=== PATIENT | female | born 1990 | race Two or more races ===

== ENCOUNTER 2016-10-14 01:02 | Emergency (ER) | payer SELFPAY ==
[~2016-10-14] VITALS: Ht 152.4 cm; Wt 54.4 kg
[2016-10-14 01:40] VITALS: BP 139/78
[2016-10-14 01:43] LABS: BILIRUBIN,URINE NEGATIVE (NEG); GLUCOSE,URINE NEGATIVE (NEG); NITRITE,URINE NEGATIVE (NEG); PROTEIN,URINE NEGATIVE (NEG-TRACE); UROBILINOGEN,URINE 0.2 mg/dL (0.2 mg/dL)
[2016-10-14 01:56] LABS: BACTERIA,URINE FEW /HPF (0-FEW); RBC,URINE TNTC /HPF (0-2); SQUAMOUS EPITHELIAL CELL,UR MOD /LPF
[2016-10-14] MEDS ORDERED: ONDANSETRON PF 4 MG/2 ML VIAL. ONE (02:11)
[2016-10-14] MEDS ORDERED: HYDROmorphone 2 MG/ML VIAL ONE (02:11)
[2016-10-14 02:14] LABS: BASO % 1 % (0-3); EOS % 1 % (0-3); HEMATOCRIT 35.4 % (36.0-47.0); HEMOGLOBIN 11.6 g/dL (12.0-15.5); LYMPH # 1.2 x10^3/uL (1.0-4.8); LYMPH % 14 % (24-48); MEAN CORPUSCULAR HEMOGLOBIN 27 pg (25-35); MEAN CORPUSCULAR HGB CONC 33 g/dL (31-37); MEAN CORPUSCULAR VOLUME 82 fL (79-100); MONO % 3 % (0-9); NEUT % 82 % (31-73); PLATELET COUNT 254 x10^3/uL (140-400); RED BLOOD COUNT 4.32 x10^6/uL (3.50-5.40); RED CELL DISTRIBUTION WIDTH 14.6 % (11.5-14.5)
[2016-10-14 02:21] LABS: CREATININE 0.7 mg/dL (0.6-1.0); GFR 100.4; POTASSIUM 3.4 mmol/L (3.5-5.1)
[2016-10-14 02:27] LABS: ALBUMIN/GLOBULIN RATIO 1.2 (1.0-1.7); TOTAL BILIRUBIN 0.3 mg/dL (0.2-1.0); TOTAL PROTEIN 7.3 g/dL (6.4-8.2)
[2016-10-14] MEDS ORDERED: HYDROmorphone 2 MG/ML VIAL IV ONE ×2 (02:30→03:15)
[2016-10-14] MEDS ORDERED: ONDANSETRON PF 4 MG/2 ML VIAL. IV ONE (02:30)
[2016-10-14] MEDS ORDERED: IV NORMAL SALINE 1000ML BAG 1,000 ML IV ONE (02:30)
--- NOTE | 2016-10-14 02:46 | RAD ---
INDICATION: LEFT FLANK PAIN X TONIGHT COMPARISON: None. TECHNIQUE: Axial CT images were obtained through the abdomen and pelvis without intravenous contrast. Limited assessment of solid organ structures and vasculature secondary to lack of intravenous contrast. One or more of the following individualized dose reduction techniques were utilized for this examination: 1. Automated exposure control; 2. Adjustment of the mA and/or kV according to patient size; 3. Use of iterative reconstruction technique. FINDINGS: Abdomen: Chest Base: Partially imaged without gross abnormality. Vessels: No abdominal aortic aneurysm. Liver/Biliary: No intrahepatic biliary duct dilation. Pancreas: Poorly evaluated on noncontrast exam. Spleen: Normal. Kidneys/Adrenal: Multiple left-sided nonobstructive renal stones. Right-sided hydronephrosis and hydroureter. 8 mm calcification right hemipelvis. Suspected cystic lesion left adnexa 41 mm. GI: Suspected appendix is partially seen but does not appear grossly inflamed. Moderate stool within the colon. No dilated loops of bowel suggest obstruction. Pelvis: Bladder: No definite adjacent inflammation. IMPRESSION: 1. Suspected cystic lesion left adnexa. Pelvic ultrasound could better evaluate. 2. Right-sided hydronephrosis. There is also a calcification seen in the right hemipelvis. Cannot follow the ureter through this region but it is possible that this is secondary to a right distal ureter stone. Electronically signed by: Ace Pennington MD (10/14/2016 2:42 AM)
[2016-10-14] MEDS ORDERED: KETOROLAC 15 MG/ML VIAL. IV ONE (03:15)
[2016-10-14] MEDS ORDERED: KETOROLAC TROMETHAMINE 30 MG/ML INJ. IV ONE (03:15)
[2016-10-14] MEDS ORDERED: IBUP-1007 PO (03:34)
[2016-10-14] MEDS ORDERED: ONDA4TAB10 SL (03:34)
[2016-10-14] MEDS ORDERED: HYDR-971 PO (03:34)
--- NOTE | 2016-10-14 03:34 | PHYS DOC ---
Past Medical History Past Medical History: No Pertinent History Past Surgical History: , Other Additional Past Surgical Histo: left hand Alcohol Use: None Drug Use: None Adult General Chief Complaint Chief Complaint: FLANK PAIN HPI HPI Patient is a 26 year old female who presents here today complaining of right flank pain. Patient reports nausea no vomiting or diarrhea. Patient reports the pain started approximately 11 PM. Patient reports the pain is intermittent in nature. Patient denies any dysuria frequency or urgency. Patient has any hematuria. Patient reports that the pain radiates from her right flank into her right lower quadrant. Patient denies any fevers shakes chills. Patient has any sore throat or ear pain. Patient has any history of kidney stones in the past. Patient has any history of hypertension diabetes liver longer kidney problems. Patient has had a seat in the past. Patient's physical exam was significant for tenderness to right flank and right lower quadrant. Patient has no rebound or guarding. No psoas or obturator signs. Patient does not present with any signs or symptoms of be consistent with a surgical abdomen. There is no tenderness at McBurney's point. There is no Quinones sign. Patient's ER workup was significant for normal labs. Patient did have blood in her urine. Patient's CT scan of her abdomen and pelvis revealed right-sided hydronephrosis with no distinct stone seen however patient clinically presents with what appears to be a kidney stone. Assessment and plan 26-year-old female who presents here today with signs and symptoms very consistent with renal colic who has right [place] on CT scan and hematuria. Patient was given Dilaudid 1.5 mg total as well as Toradol and Zofran IV fluids. Patient be discharged home with pain medicines and antiemetics and is instructed to follow-up with her primary care physician. Review of Systems Review of Systems Constitutional: Denies fever or chills [] Eyes: Denies change in visual acuity, redness, or eye pain [] All other review systems are negative except as documented in the history of present illness portion. Current Medications Current Medications Current Medications Medications (Trade) Dose Ordered Sig/[facility] Start Time Stop Time Status Last Admin Dose Admin Hydromorphone HCl (Dilaudid) 0.5 mg 1X ONCE 10/14/16 03:15 10/14/16 03:16 DC 10/14/16 03:19 0.5 MG Ketorolac Tromethamine (Toradol) 30 mg 1X ONCE 10/14/16 03:15 10/14/16 03:16 DC 10/14/16 03:19 30 MG Ondansetron HCl (Zofran) 4 mg 1X ONCE 10/14/16 02:30 10/14/16 02:31 DC 10/14/16 02:21 4 MG Sodium Chloride 1,000 ml @ 1,000 mls/hr 1X ONCE 10/14/16 02:30 10/14/16 03:29 10/14/16 02:21 1,000 MLS/HR Allergies Allergies Allergies Coded Allergies Type Severity Reaction Last Updated Verified No Known Drug Allergies 10/14/16 No Physical Exam Physical Exam Constitutional: Well developed, well nourished, no acute distress, non-toxic appearance. [] HENT: Normocephalic, atraumatic, bilateral external ears normal, oropharynx moist, no oral exudates, nose normal. [] Eyes: PERRLA, EOMI, conjunctiva normal, no discharge. [] Neck: Normal range of motion, no tenderness, supple, no stridor. [] Cardiovascular:Heart rate regular rhythm, no murmur [] Lungs & Thorax: Bilateral breath sounds clear to auscultation [] Abdomen: Bowel sounds normal, soft, tenderness, no masses, no pulsatile masses. [] Skin: Warm, dry, no erythema, no rash. [] Back: No tenderness, no CVA tenderness. [] Extremities: No tenderness, no cyanosis, no clubbing, ROM intact, no edema. [] Neurologic: Alert and oriented X 3, normal motor function, normal sensory function, no focal deficits noted. [] Psychologic: Affect normal, judgement normal, mood normal. [] Current Patient Data Vital Signs Vital Signs Date Time Temp Pulse Resp B/P (MAP) Pulse Ox O2 Delivery O2 Flow Rate FiO2 10/14/16 01:40 98.5 60 18 139/78 (98) 100 Room Air 98.5 Lab Values Laboratory Tests Test 10/14/16 01:05 10/14/16 02:00 Urine Collection Type Unknown Urine Color Yellow Urine Clarity Clear Urine pH 6.0 Urine Specific [place] 1.025 Urine Protein Negative mg/dL (NEG-TRACE) Urine Glucose (UA) Negative mg/dL (NEG) Urine Ketones (Stick) Trace mg/dL (NEG) Urine Blood Large (NEG) Urine Nitrite Negative (NEG) Urine Bilirubin Negative (NEG) Urine Urobilinogen Dipstick 0.2 mg/dL (0.2 mg/dL) Urine Leukocyte Esterase Small (NEG) Urine RBC Tntc /HPF (0-2) Urine WBC 5-10 /HPF (0-4) Urine Squamous Epithelial Cells Mod /LPF Urine Bacteria Few /HPF (0-FEW) Urine Mucus Marked /LPF White Blood Count 9.0 x10^3/uL (4.0-11.0) Red Blood Count 4.32 x10^6/uL (3.50-5.40) Hemoglobin 11.6 g/dL (12.0-15.5) L Hematocrit 35.4 % (36.0-47.0) L Mean Corpuscular Volume 82 fL (79-100) Mean Corpuscular Hemoglobin 27 pg (25-35) Mean Corpuscular Hemoglobin Concent 33 g/dL (31-37) Red Cell Distribution Width 14.6 % (11.5-14.5) H Platelet Count 254 x10^3/uL (140-400) Neutrophils (%) (Auto) 82 % (31-73) H Lymphocytes (%) (Auto) 14 % (24-48) L Monocytes (%) (Auto) 3 % (0-9) Eosinophils (%) (Auto) 1 % (0-3) Basophils (%) (Auto) 1 % (0-3) Neutrophils # (Auto) 7.4 x10^3uL (1.8-7.7) Lymphocytes # (Auto) 1.2 x10^3/uL (1.0-4.8) Monocytes # (Auto) 0.3 x10^3/uL (0.0-1.1) Eosinophils # (Auto) 0.0 x10^3/uL (0.0-0.7) Basophils # (Auto) 0.0 x10^3/uL (0.0-0.2) Sodium Level 141 mmol/L (136-145) Potassium Level 3.4 mmol/L (3.5-5.1) L Chloride Level 104 mmol/L (98-107) Carbon Dioxide Level 26 mmol/L (21-32) Anion Gap 11 (6-14) Blood Urea Nitrogen 13 mg/dL (7-20) Creatinine 0.7 mg/dL (0.6-1.0) Estimated GFR (Cockcroft-Gault) 100.4 BUN/Creatinine Ratio 19 (6-20) Glucose Level 122 mg/dL (70-99) H Calcium Level 9.0 mg/dL (8.5-10.1) Total Bilirubin 0.3 mg/dL (0.2-1.0) Aspartate Amino Transferase (AST) 20 U/L (15-37) Alanine Aminotransferase (ALT) 16 U/L (14-59) Alkaline Phosphatase 120 U/L (46-116) H Total Protein 7.3 g/dL (6.4-8.2) Albumin 4.0 g/dL (3.4-5.0) Albumin/Globulin Ratio 1.2 (1.0-1.7) Laboratory Tests 10/14/16 02:00 Laboratory Tests 10/14/16 02:00 EKG EKG [] Radiology/Procedures Radiology/Procedures [] Course & Med Decision Making Course & Med Decision Making Pertinent Labs and Imaging studies reviewed. (See chart for details) [] Dragon Disclaimer Dragon Disclaimer This electronic medical record was generated, in whole or in part, using a voice recognition dictation system. Departure Departure Impression: Primary Impression: Renal colic on right side Disposition: 01 HOME, SELF-CARE Condition: IMPROVED Referrals: NO PCP (PCP) Patient Instructions: Kidney Stones Scripts Ondansetron (ZOFRAN ODT) 4 Mg Tab.rapdis 1 TAB SL Q6HRS Y for NAUSEA, #12 TAB Prov: GISSELLE CANALES MD 10/14/16 Hydrocodone/Apap 5-325 (NORCO 5-325 TABLET) 1 Each Tablet 1 TAB PO QID Y for PAIN, #10 TAB Prov: GISSELLE CANALES MD 10/14/16 Ibuprofen (IBUPROFEN) 600 Mg Tablet 600 MG PO PRN Q6HRS Y for PAIN, #20 TAB Prov: GISSELLE CANALES MD 10/14/16 GISSELLE CANALES MD Oct 14, 2016 03:34
== END 2016-10-14 03:59 | disposition home or self-care (01) ==
LOC: ER 01:02
DX: N23 Unspecified renal colic (principal); Z98.890 Other specified postprocedural states
CPT/HCPCS: 36415; 74176; 80053; 81001; 81025; 85027; 87086; 96361; 96374; 96375; 99285; J1170; J1885; J2405; J7030; 87186

== ENCOUNTER 2016-10-16 21:41 | Inpatient (IN) | payer SELFPAY ==
[~2016-10-16] VITALS: Ht 162.6 cm; Wt 54.4 kg
[~2016-10-16 21:41] MED LIST: HYDR-971 PO; IBUP-1007 PO; ONDA4TAB10 SL
[2016-10-16] MEDS ORDERED: MORPHINE SULFATE 4 MG/ML DISP.SYRIN. IV/SQ PRN (22:15)
[2016-10-16] MEDS ORDERED: IV NORMAL SALINE 1000ML BAG 1,000 ML IV SCH (22:15)
[2016-10-16] MEDS ORDERED: ONDANSETRON PF 4 MG/2 ML VIAL. IV ONE (22:15)
[2016-10-16] MEDS ORDERED: KETOROLAC TROMETHAMINE 30 MG/ML INJ. IV ONE (22:15)
[2016-10-16 22:29] LABS: BASO % 0 % (0-3); EOS % 0 % (0-3); HEMATOCRIT 33.9 % (36.0-47.0); HEMOGLOBIN 11.1 g/dL (12.0-15.5); LYMPH # 0.9 x10^3/uL (1.0-4.8); LYMPH % 8 % (24-48); MEAN CORPUSCULAR HEMOGLOBIN 27 pg (25-35); MEAN CORPUSCULAR HGB CONC 33 g/dL (31-37); MEAN CORPUSCULAR VOLUME 82 fL (79-100); MONO % 8 % (0-9); NEUT % 84 % (31-73); PLATELET COUNT 190 x10^3/uL (140-400); RED BLOOD COUNT 4.14 x10^6/uL (3.50-5.40); RED CELL DISTRIBUTION WIDTH 14.4 % (11.5-14.5); WHITE BLOOD COUNT 10.4 x10^3/uL (4.0-11.0)
[2016-10-16 22:30] LABS: BILIRUBIN,URINE NEGATIVE (NEG); GLUCOSE,URINE NEGATIVE (NEG); NITRITE,URINE NEGATIVE (NEG); PH,URINE 7.5; PROTEIN,URINE NEGATIVE (NEG-TRACE); UROBILINOGEN,URINE 0.2 mg/dL (0.2 mg/dL)
[2016-10-16 22:39] LABS: BACTERIA,URINE MODERATE /HPF (0-FEW); RBC,URINE 20-40 /HPF (0-2); SQUAMOUS EPITHELIAL CELL,UR MANY /LPF; WBC,URINE TNTC /HPF (0-4)
[2016-10-16 22:40] LABS: CALCIUM 8.7 mg/dL (8.5-10.1); CREATININE 0.9 mg/dL (0.6-1.0); GFR 75.1; POTASSIUM 3.9 mmol/L (3.5-5.1)
--- NOTE | 2016-10-16 23:10 | RAD ---
INDICATION: Pain and nausea COMPARISON: October 14, 2016 TECHNIQUE: Grayscale and color ultrasound images obtained of the bilateral kidneys and bladder. FINDINGS: Right Kidney: 10.8 mm. Moderate hydronephrosis with hydroureter. Left Kidney: 10.7 mm. No hydronephrosis. Bladder: 83 cc prevoid. Suspected stone at right ureterovesicular junction measuring up to about 12 mm. IMPRESSION: Right-sided hydronephrosis and hydroureter with a right ureterovesicular junction stone again suspected. Electronically signed by: Ace Pennington MD (10/16/2016 11:07 PM)
--- NOTE | 2016-10-16 23:50 | PHYS DOC ---
Past Medical History Past Medical History: No Pertinent History Past Surgical History: , Other Additional Past Surgical Histo: left hand Alcohol Use: None Drug Use: None Adult General Chief Complaint Chief Complaint: FLANK PAIN HPI HPI Patient is a 26 year old female with who presents with continued pain and right flank radiating to right lower quadrant associated with recent diagnosis of kidney stone at this facility. Pain is constant, slightly improves with home medications, but is not completely relieved. Pain has become more severe this evening. She had a temperature of 100 at home. She continues to have nausea without emesis. She has dysuria without hematuria. She denies diarrhea or constipation. She is currently on menstrual cycle. Review of Systems Review of Systems Constitutional: Denies fever or chills [] Eyes: Denies change in visual acuity, redness, or eye pain [] HENT: Denies nasal congestion or sore throat [] Respiratory: Denies cough or shortness of breath [] Cardiovascular: No additional information not addressed in HPI [] GI: Denies abdominal pain, vomiting, bloody stools or diarrhea [] : Denies hematuria [] Musculoskeletal: Denies joint pain [] Integument: Denies rash or skin lesions [] Neurologic: Denies headache, focal weakness or sensory changes [] Endocrine: Denies polyuria or polydipsia [] Current Medications Current Medications Current Medications Medications (Trade) Dose Ordered Sig/[facility] Start Time Stop Time Status Last Admin Dose Admin Ketorolac Tromethamine (Toradol) 10 mg 1X ONCE 10/16/16 22:15 10/16/16 22:16 DC 10/16/16 22:27 10 MG Morphine Sulfate 4 mg PRN Q15MIN PRN 10/16/16 22:15 10/17/16 22:14 10/16/16 22:29 4 MG Ondansetron HCl (Zofran) 4 mg 1X ONCE 10/16/16 22:15 10/16/16 22:16 DC 10/16/16 22:27 4 MG Sodium Chloride 1,000 ml @ 1,000 mls/hr Q1H 10/16/16 22:15 10/16/16 23:14 DC 10/16/16 22:24 1,000 MLS/HR Allergies Allergies Allergies Coded Allergies Type Severity Reaction Last Updated Verified No Known Drug Allergies 10/14/16 No Physical Exam Physical Exam Constitutional: Well developed, well nourished, no acute distress, non-toxic appearance. [] HENT: Normocephalic, atraumatic, bilateral external ears normal, oropharynx moist, nose normal. [] Eyes: PERRLA, EOMI. [] Neck: Normal range of motion, supple. [] Cardiovascular:Heart rate regular rhythm [] Lungs & Thorax: Bilateral breath sounds clear to auscultation [] Abdomen: Bowel sounds normal, soft, no tenderness. [] Skin: Warm, dry, no erythema, no rash. [] Back: No tenderness, no left CVA tenderness. Has right CVA tenderness. [] Extremities: No tenderness, ROM intact, no edema. [] Neurologic: Alert and oriented X 3, normal motor function, normal sensory function, no focal deficits noted. [] Psychologic: Affect normal, judgement normal, mood normal. [] Current Patient Data Vital Signs Vital Signs Date Time Temp Pulse Resp B/P (MAP) Pulse Ox O2 Delivery O2 Flow Rate FiO2 10/16/16 22:29 16 Room Air 10/16/16 22:11 80 116/55 (75) 98 10/16/16 21:56 98.2 98.2 Lab Values Laboratory Tests Test 10/16/16 21:02 10/16/16 22:10 POC Urine HCG, Qualitative Hcg negative (Negative) White Blood Count 10.4 x10^3/uL (4.0-11.0) Red Blood Count 4.14 x10^6/uL (3.50-5.40) Hemoglobin 11.1 g/dL (12.0-15.5) L Hematocrit 33.9 % (36.0-47.0) L Mean Corpuscular Volume 82 fL (79-100) Mean Corpuscular Hemoglobin 27 pg (25-35) Mean Corpuscular Hemoglobin Concent 33 g/dL (31-37) Red Cell Distribution Width 14.4 % (11.5-14.5) Platelet Count 190 x10^3/uL (140-400) Neutrophils (%) (Auto) 84 % (31-73) H Lymphocytes (%) (Auto) 8 % (24-48) L Monocytes (%) (Auto) 8 % (0-9) Eosinophils (%) (Auto) 0 % (0-3) Basophils (%) (Auto) 0 % (0-3) Neutrophils # (Auto) 8.7 x10^3uL (1.8-7.7) H Lymphocytes # (Auto) 0.9 x10^3/uL (1.0-4.8) L Monocytes # (Auto) 0.8 x10^3/uL (0.0-1.1) Eosinophils # (Auto) 0.0 x10^3/uL (0.0-0.7) Basophils # (Auto) 0.0 x10^3/uL (0.0-0.2) Urine Collection Type Unknown Urine Color Yellow Urine Clarity Cloudy Urine pH 7.5 Urine Specific [place] <=1.005 Urine Protein Negative mg/dL (NEG-TRACE) Urine Glucose (UA) Negative mg/dL (NEG) Urine Ketones (Stick) Negative mg/dL (NEG) Urine Blood Large (NEG) Urine Nitrite Negative (NEG) Urine Bilirubin Negative (NEG) Urine Urobilinogen Dipstick 0.2 mg/dL (0.2 mg/dL) Urine Leukocyte Esterase Large (NEG) Urine RBC 20-40 /HPF (0-2) Urine WBC Tntc /HPF (0-4) Urine Squamous Epithelial Cells Many /LPF Urine Amorphous Sediment Present /HPF Urine Bacteria Moderate /HPF (0-FEW) Urine Mucus Slight /LPF Sodium Level 136 mmol/L (136-145) Potassium Level 3.9 mmol/L (3.5-5.1) Chloride Level 101 mmol/L (98-107) Carbon Dioxide Level 29 mmol/L (21-32) Anion Gap 6 (6-14) Blood Urea Nitrogen 7 mg/dL (7-20) Creatinine 0.9 mg/dL (0.6-1.0) Estimated GFR (Cockcroft-Gault) 75.1 Glucose Level 115 mg/dL (70-99) H Calcium Level 8.7 mg/dL (8.5-10.1) Laboratory Tests 10/16/16 22:10 Laboratory Tests 10/16/16 22:10 Radiology/Procedures Radiology/Procedures Ultrasound bilateral renal IMPRESSION: Right-sided hydronephrosis and hydroureter with a right ureterovesicular junction stone again suspected. Electronically signed by: Ace Pennington MD (10/16/2016 11:07 PM) Course & Med Decision Making Course & Med Decision Making Pertinent Labs and Imaging studies reviewed. (See chart for details) Laboratory evaluation is largely unremarkable, other than urinalysis. Her urine shows evidence of infection; however unclear if this is a contaminated specimen while she is on her menstrual cycle. Imaging as above. She continues to be symptomatic. Discussed case with Dr. Ruffin, urology, who recommends inpatient management with likely procedure tomorrow and Rocephin for possible infection. Discussed case with Dr. Alcantara, who will admit. Dragon Disclaimer Dragon Disclaimer This electronic medical record was generated, in whole or in part, using a voice recognition dictation system. Departure Departure Impression: Primary Impression: Ureteral colic Additional Impression: Acute cystitis with hematuria Disposition: ADMITTED INPATIENT Condition: STABLE Referrals: NO PCP (PCP) Problem Qualifiers Yehuda REVELES MD Oct 16, 2016 23:50
[2016-10-17] VITALS (13 sets, daily range): BP systolic 98–115; BP diastolic 58–75
[2016-10-17] MEDS ORDERED: IV NORMAL SALINE 1000ML BAG 1,000 ML IV SCH
[2016-10-17] MEDS ORDERED: MORPHINE SULFATE 4 MG/ML DISP.SYRIN. IV PRN
[2016-10-17] MEDS ORDERED: ONDANSETRON PF 4 MG/2 ML VIAL. IV PRN
[2016-10-17] MEDS ORDERED: ACETAMINOPHEN 325 MG TABLET. PO PRN
--- NOTE | 2016-10-17 03:59 | ACF ---
Admission Forms Criteria RENAL COLIC AND KIDNEY STONES Clinical Indications for Admission to Inpatient Care ( Place 'X' for any and all applicable criteria): Admission is indicated for ANY ONE of the following (1)(2)(3)(4): [X]I. Inpatient admission required rather than observation care (Also use Renal Colic and Kidney Stones: Observation Care Criteria as appropriate) because of ANY ONE of the following: [ ]a) Severe pain requiring acute inpatient management [ ]b) Urinary tract infection identified [ ]c) Vomiting that is severe or persistent [ ]d) IV fluid required rather than oral rehydration to replace significant ongoing (eg, for greater than 24 hours) losses (greater than 200 mL/hr or 3 L/m2 per day) [ ]e) Percutaneous or open drainage (eg, abscess, biliary tract) procedures [X]f) Other condition, treatment or monitoring requiring inpatient admission [ ]II. Impending acute renal failure [ ]III. Bilateral obstruction [ ]IV. Single kidney with obstruction [ ]V. Transplanted kidney with obstruction [ ]. Possible open surgical procedure needed (eg, pyonephrosis, stone removal not amendable to other means) [ ]VII. Hemodynamic instability Extended stay beyond goal length of stay may be needed for(2)(3)(31): [ ]a) Failed initial stone removal (32) [ ]b) Pyonephrosis [ ]c) Obstructive uropathy with urinary tract infection [ ]d) Procedure complications [ ]e) Comorbidities (22) The original [facility] content created by [employer] has been revised. The portions of the content which have been revised are identified through the use of italic text or in bold, and [facility] has neither reviewed nor approved the modified material. All other unmodified content is copyright [facility]. Please see references footnoted in the original [facility] edition 2016 Admission Criteria Met?: Yes KURTIS MORRIS Oct 17, 2016 03:59
[2016-10-17] MEDS ORDERED: fentaNYL PF VIAL 100 MCG/2 ML VIAL ONE (07:28)
[2016-10-17] MEDS ORDERED: PROPOFOL 20 ML IV ONE (07:28)
[2016-10-17] MEDS ORDERED: DEXAMETHASONE SOD PHOS 20 MG/5 ML VIAL. ONE (07:28)
[2016-10-17] MEDS ORDERED: ONDANSETRON PF 4 MG/2 ML VIAL. ONE (07:28)
[2016-10-17] MEDS ORDERED: LIDOCAINE 2% PF Vial for OR 5 ML VIAL. ONE (07:28)
[2016-10-17] MEDS ORDERED: LIDOCAINE 2% JELLY 6ML IN APPLICATOR. ONE (07:42)
[2016-10-17] MEDS ORDERED: IOHEXOL 300 MG/ML 50 ML VIAL. ONE (07:42)
--- NOTE | 2016-10-17 07:50 | PDOC ---
PROGRESS NOTES Subjective Subjective Pt. with right distal ureteral stone Objective Objective Vital Signs Date Time Temp Pulse Resp B/P (MAP) Pulse Ox O2 Delivery O2 Flow Rate FiO2 10/17/16 07:01 93 Room Air 10/17/16 03:00 99.3 70 20 102/65 (77) 99.3 Intake and Output 10/17/16 06:59 Intake Total 1450 ml Balance 1450 ml Intake IV Total 1450 ml # Voids 1 Physical Exam Physical Exam Tender right flank and abdomen Plan Plan of Care I discussed with the pt. and her family her stone and we discussed the options, alternatives, benefits, risks, and possible complications of observation vs. surgical intervention with cystoscopy, right retrograde pyelogram, possible right ureteroscopy with possible laser lithotripsy and right ureteral stent placement. Pt. understands and wishes to proceed with operation. Will therfore proceed accordingly. Problems Medical Problems: (1) Acute cystitis with hematuria Status: Acute (2) Ureteral colic Status: Acute Comment Review of Relevant I have reviewed the following items aaron (where applicable) has been applied. Labs Laboratory Tests Test 10/16/16 21:02 10/16/16 22:10 Bedside Urine HCG, Qualitative Hcg negative (Negative) White Blood Count 10.4 x10^3/uL (4.0-11.0) Red Blood Count 4.14 x10^6/uL (3.50-5.40) Hemoglobin 11.1 g/dL (12.0-15.5) Hematocrit 33.9 % (36.0-47.0) Mean Corpuscular Volume 82 fL (79-100) Mean Corpuscular Hemoglobin 27 pg (25-35) Mean Corpuscular Hemoglobin Concent 33 g/dL (31-37) Red Cell Distribution Width 14.4 % (11.5-14.5) Platelet Count 190 x10^3/uL (140-400) Neutrophils (%) (Auto) 84 % (31-73) Lymphocytes (%) (Auto) 8 % (24-48) Monocytes (%) (Auto) 8 % (0-9) Eosinophils (%) (Auto) 0 % (0-3) Basophils (%) (Auto) 0 % (0-3) Neutrophils # (Auto) 8.7 x10^3uL (1.8-7.7) Lymphocytes # (Auto) 0.9 x10^3/uL (1.0-4.8) Monocytes # (Auto) 0.8 x10^3/uL (0.0-1.1) Eosinophils # (Auto) 0.0 x10^3/uL (0.0-0.7) Basophils # (Auto) 0.0 x10^3/uL (0.0-0.2) Urine Collection Type Unknown Urine Color Yellow Urine Clarity Cloudy Urine pH 7.5 Urine Specific [place] <=1.005 Urine Protein Negative mg/dL (NEG-TRACE) Urine Glucose (UA) Negative mg/dL (NEG) Urine Ketones (Stick) Negative mg/dL (NEG) Urine Blood Large (NEG) Urine Nitrite Negative (NEG) Urine Bilirubin Negative (NEG) Urine Urobilinogen Dipstick 0.2 mg/dL (0.2 mg/dL) Urine Leukocyte Esterase Large (NEG) Urine RBC 20-40 /HPF (0-2) Urine WBC Tntc /HPF (0-4) Urine Squamous Epithelial Cells Many /LPF Urine Amorphous Sediment Present /HPF Urine Bacteria Moderate /HPF (0-FEW) Urine Mucus Slight /LPF Sodium Level 136 mmol/L (136-145) Potassium Level 3.9 mmol/L (3.5-5.1) Chloride Level 101 mmol/L (98-107) Carbon Dioxide Level 29 mmol/L (21-32) Anion Gap 6 (6-14) Blood Urea Nitrogen 7 mg/dL (7-20) Creatinine 0.9 mg/dL (0.6-1.0) Estimated GFR (Cockcroft-Gault) 75.1 Glucose Level 115 mg/dL (70-99) Calcium Level 8.7 mg/dL (8.5-10.1) Laboratory Tests Test 10/16/16 21:02 10/16/16 22:10 Bedside Urine HCG, Qualitative Hcg negative (Negative) White Blood Count 10.4 x10^3/uL (4.0-11.0) Red Blood Count 4.14 x10^6/uL (3.50-5.40) Hemoglobin 11.1 g/dL (12.0-15.5) Hematocrit 33.9 % (36.0-47.0) Mean Corpuscular Volume 82 fL (79-100) Mean Corpuscular Hemoglobin 27 pg (25-35) Mean Corpuscular Hemoglobin Concent 33 g/dL (31-37) Red Cell Distribution Width 14.4 % (11.5-14.5) Platelet Count 190 x10^3/uL (140-400) Neutrophils (%) (Auto) 84 % (31-73) Lymphocytes (%) (Auto) 8 % (24-48) Monocytes (%) (Auto) 8 % (0-9) Eosinophils (%) (Auto) 0 % (0-3) Basophils (%) (Auto) 0 % (0-3) Neutrophils # (Auto) 8.7 x10^3uL (1.8-7.7) Lymphocytes # (Auto) 0.9 x10^3/uL (1.0-4.8) Monocytes # (Auto) 0.8 x10^3/uL (0.0-1.1) Eosinophils # (Auto) 0.0 x10^3/uL (0.0-0.7) Basophils # (Auto) 0.0 x10^3/uL (0.0-0.2) Urine Collection Type Unknown Urine Color Yellow Urine Clarity Cloudy Urine pH 7.5 Urine Specific [place] <=1.005 Urine Protein Negative mg/dL (NEG-TRACE) Urine Glucose (UA) Negative mg/dL (NEG) Urine Ketones (Stick) Negative mg/dL (NEG) Urine Blood Large (NEG) Urine Nitrite Negative (NEG) Urine Bilirubin Negative (NEG) Urine Urobilinogen Dipstick 0.2 mg/dL (0.2 mg/dL) Urine Leukocyte Esterase Large (NEG) Urine RBC 20-40 /HPF (0-2) Urine WBC Tntc /HPF (0-4) Urine Squamous Epithelial Cells Many /LPF Urine Amorphous Sediment Present /HPF Urine Bacteria Moderate /HPF (0-FEW) Urine Mucus Slight /LPF Sodium Level 136 mmol/L (136-145) Potassium Level 3.9 mmol/L (3.5-5.1) Chloride Level 101 mmol/L (98-107) Carbon Dioxide Level 29 mmol/L (21-32) Anion Gap 6 (6-14) Blood Urea Nitrogen 7 mg/dL (7-20) Creatinine 0.9 mg/dL (0.6-1.0) Estimated GFR (Cockcroft-Gault) 75.1 Glucose Level 115 mg/dL (70-99) Calcium Level 8.7 mg/dL (8.5-10.1) Medications Current Medications Morphine Sulfate 4 mg PRN Q15MIN PRN IV/SQ PAIN GREATER THAN 3/10 Last administered on 10/16/16 22:29; Start 10/16/16 at 22:15; Stop 10/17/16 at 22:14 Sodium Chloride 1,000 ml @ 1,000 mls/hr Q1H IV Last administered on 10/16/16 22:24; Start 10/16/16 at 22:15; Stop 10/16/16 at 23:14; Status DC Ondansetron HCl (Zofran) 4 mg 1X ONCE IV Last administered on 10/16/16 22:27 ; Start 10/16/16 at 22:15; Stop 10/16/16 at 22:16; Status DC Ketorolac Tromethamine (Toradol) 10 mg 1X ONCE IV Last administered on 22:27; Start 10/16/16 at 22:15; Stop 10/16/16 at 22:16; Status DC Ondansetron HCl (Zofran) 4 mg PRN Q8HRS PRN IV NAUSEA/VOMITING; Start 10/17/16 at 00:00; Stop 10/17/16 at 23:59 Morphine Sulfate 4 mg PRN Q2HR PRN IV PAIN Last administered on 10/17/16 07:01 ; Start 10/17/16 at 00:00; Stop 10/17/16 at 23:59 Sodium Chloride 1,000 ml @ 100 mls/hr Q10H IV Last administered on 10/17/16 01:12; Start 10/17/16 at 00:00; Stop 10/17/16 at 00:01; Status DC Acetaminophen (Tylenol) 650 mg PRN Q4HRS PRN PO FEVER; Start 10/17/16 at 00:00 ; Stop 10/17/16 at 23:59 Ceftriaxone Sodium 1 gm/ Sodium Chloride 50 ml @ 100 mls/hr Q24H IV Last administered on 10/17/16 01:12; Start 10/17/16 at 00:00 Propofol 20 ml @ As Directed STK-MED ONCE IV ; Start 10/17/16 at 07:28; Stop at 07:29; Status DC Lidocaine HCl (Lidocaine Pf 2% Vial) 5 ml STK-MED ONCE .ROUTE ; Start 10/17/16 at 07:28; Stop 10/17/16 at 07:29; Status DC Ondansetron HCl (Zofran) 4 mg STK-MED ONCE .ROUTE ; Start 10/17/16 at 07:28; Stop 10/17/16 at 07:29; Status DC Dexamethasone Sodium Phosphate (Decadron) 20 mg STK-MED ONCE .ROUTE ; Start at 07:28; Stop 10/17/16 at 07:29; Status DC Fentanyl Citrate (Fentanyl 2ml Vial) 100 mcg STK-MED ONCE .ROUTE ; Start at 07:28; Stop 10/17/16 at 07:29; Status DC Lidocaine HCl (Glydo (Lidocaine) Jelly) 6 massimo STK-MED ONCE .ROUTE ; Start at 07:42; Stop 10/17/16 at 07:43; Status DC Iohexol (Omnipaque 300 Mg/ml) 50 ml STK-MED ONCE .ROUTE ; Start 10/17/16 at 07: 42; Stop 10/17/16 at 07:43; Status DC Active Scripts Active Zofran Odt (Ondansetron) 4 Mg Tab.rapdis 1 Tab SL Q6HRS PRN [place] 5-325 Tablet (Acetaminophen/Hydrocodone Bitart) 1 Each Tablet 1 Tab PO QID PRN Ibuprofen 600 Mg Tablet 600 Mg PO PRN Q6HRS PRN Vitals/I & O Vital Sign - Last 24 Hours 10/16/16 10/16/16 10/16/16 10/16/16 21:56 21:56 22:11 22:29 Temp 98.2 98.2 98.2 98.2 Pulse 81 81 80 Resp 16 16 18 16 B/P (MAP) 116/56 (76) 116/56 (76) 116/55 (75) Pulse Ox 98 98 98 O2 Delivery Room Air Room Air Room Air Room Air 10/17/16 10/17/16 10/17/16 10/17/16 00:36 00:50 00:55 03:00 Temp 98.1 99.3 98.1 99.3 Pulse 74 68 70 Resp 16 20 20 B/P (MAP) 100/56 (71) 108/59 (75) 102/65 (77) Pulse Ox 100 100 93 O2 Delivery Room Air Room Air Room Air Room Air 10/17/16 07:01 Pulse Ox 93 O2 Delivery Room Air Intake and Output 10/16/16 10/16/16 10/17/16 14:59 22:59 06:59 Intake Total 1450 ml Balance 1450 ml FELY SERRANO MD Oct 17, 2016 07:49
[2016-10-17] MEDS ORDERED: LIDOCAINE 2% JELLY 6ML IN APPLICATOR. MM ONE (08:27)
[2016-10-17] MEDS ORDERED: SEVOFLURANE 61 TO 120 MINUTES. IH ONE (08:35)
[2016-10-17] MEDS ORDERED: PHENYLEPHRINE in 0.9% NACL PF 1 MG/10 ML DISP.SYRIN. IV ONE (08:43)
[2016-10-17] MEDS ORDERED: KETOROLAC 30 MG/ML INJ FOR OR. INJ ONE (08:49)
--- NOTE | 2016-10-17 09:01 | PDOC4 ---
Operative Note Operative Note pre-op dx-right ureteral stone procedure-cystoscopy, right retrograde pyelogram, right ureteral stent placement surgeon-chitra flores-general Pt. to PACU in stable condition FELY SERRANO MD Oct 17, 2016 09:01
[2016-10-17] MEDS ORDERED: IBUPROFEN 600 MG TABLET. PO PRN (10:00)
[2016-10-17] MEDS ORDERED: HYDROcodone/APAP 5/325MG 1 TAB TABLET PO PRN (10:00)
--- NOTE | 2016-10-17 11:03 | OP ---
DATE OF SURGERY: 10/17/2016 OPERATION: Cystoscopy, right retrograde pyelogram, right ureteral stent placement. SURGEON: Fely Ruffin M.D. ANESTHESIA: General. PREOPERATIVE DIAGNOSIS: Right ureteral stone. POSTOPERATIVE DIAGNOSES: Right ureteral stone with urinary tract infection and right ureteropelvic junction stenosis. INDICATIONS: The patient is a very pleasant 26-year-old female with right flank and abdominal pain for the past 4 days. The patient was seen in the Emergency Room and admitted with a right distal ureteral stone measuring approximately 12 mm by ultrasound with hydronephrosis and continued right renal . I have discussed with the patient and her family the options, alternatives, benefits, risks and possible complications of cystoscopy, right retrograde pyelogram, possible ureteroscopy, possible laser lithotripsy, possible stent placement. They understand this and they wish to proceed ahead with the operation. DESCRIPTION OF PROCEDURE: After obtaining informed consent, the patient was taken to the operating room. After an excellent general anesthetic, the patient was placed in the dorsal lithotomy position. Groin was prepped and draped in sterile fashion. The patient was preloaded with IV antibiotics and she had already been given IV antibiotics also approximately 8 hours prior. Panendoscopy and cystoscopy were then performed with the 30 and 70-degree lens and the 21-[place] cystoscope sheath. Bladder was entered and inspected. Both ureteral orifices were identified and found to be grossly patent. Bladder wall appeared smooth and without any lesions. No bladder tumors or bladder stones were identified. Fluoroscopy showed radiopacity in the area of the right distal ureter consistent with the patient's stone. Right retrograde pyelogram was performed. The patient was noted to have filling defect in the area with a radiopacity, was consistent with the patient's stone with dilation of the ureter above that level and tortuosity. 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 A floppy-tipped ZIPwire was passed up the right ureter past the stone to the right collecting system and the urine, which drained after passage of the ZIPwire, appeared cloudy and a 5-[place] Pollack catheter was passed over the ZIPwire up to the right kidney and urine was obtained for urine culture. The patient both had the stone and urinary tract infection along with right UPJ stenosis. Therefore, at this point, it was decided to go ahead and stent the patient to allow for the draining, so to treat the UTI. A floppy-tipped ZIPwire was then passed again through the Pollack catheter and into the upper portion of the bifid collecting system and then the Pollack catheter removed and then following this, a 4.8 x 28 double-J stent was then passed up the ZIPwire, placing one curl in the upper pole calyx of the right kidney and the other curl in the bladder and the ZIPwire removed. Stent position was checked by fluoroscopy in direct vision, found to be in good position. Following this, bladder was then drained. The cystoscope was withdrawn from the patient. The patient tolerated the procedure very well and was taken to recovery room in stable condition. Plan will be as to treat the patient's urinary tract infection and then have her follow up with Dr. John at Urology for further evaluation and treatment of her right ureteral stone and her right UPJ stenosis. FELY RUFFIN MD DR: DANDRE/josue JOB#: [id number] / [id number]
--- NOTE | 2016-10-17 13:03 | PDOC1 ---
History and Physical Date of Admission Date of Admission DATE: 10/17/16 TIME: 12:59 Identification/Chief Complaint Chief Complaint abd pain Problems: Source Source: Caregiver, Chart review, Patient History of Present Illness History of Present Illness Bahamian speaking 26 y.o female,a cute onset R sided abd pain, no emesis? no reports of bloody urine, found to have a kidney stone, Underwent stent placement - dw urology THere is also some UPJ stenosis and urology recs [facility] (need for robotics etc, laparoscopic). Pt seen post op, pain free, eating a meal, at bedside, NO fevers, no white CT,. ON IV rocephin, Will dc kimberly home on pO cipro Dw family and pt and urology Past Medical History Cardiovascular: No pertinent hx Pulmonary: No pertinent hx GI: No pertinent hx Heme/Onc: No pertinent hx Hepatobiliary: No pertinent hx Psych: No pertinent hx Rheumatologic: No pertinent hx Infectious disease: No pertinent hx ENT: No pertinent hx Renal/: No pertinent hx Endocrine: No pertinent hx Dermatology: No pertinent hx Past Surgical History Past Surgical History: Other (stent placement R ureter) Family History Family History: Hypertension Social History Smoke: No ALCOHOL: none Drugs: None Current Problem List Problem List Problems Medical Problems: (1) Acute cystitis with hematuria Status: Acute (2) Ureteral colic Status: Acute Problems: Current Medications Current Medications Current Medications Morphine Sulfate 4 mg PRN Q15MIN PRN IV/SQ PAIN GREATER THAN 3/10 Last administered on 10/16/16 22:29; Start 10/16/16 at 22:15; Stop 10/17/16 at 09:53 ; Status DC Sodium Chloride 1,000 ml @ 1,000 mls/hr Q1H IV Last administered on 10/16/16 22:24; Start 10/16/16 at 22:15; Stop 10/16/16 at 23:14; Status DC Ondansetron HCl (Zofran) 4 mg 1X ONCE IV Last administered on 10/16/16 22:27 ; Start 10/16/16 at 22:15; Stop 10/16/16 at 22:16; Status DC Ketorolac Tromethamine (Toradol) 10 mg 1X ONCE IV Last administered on 22:27; Start 10/16/16 at 22:15; Stop 10/16/16 at 22:16; Status DC Ondansetron HCl (Zofran) 4 mg PRN Q8HRS PRN IV NAUSEA/VOMITING; Start 10/17/16 at 00:00; Stop 10/17/16 at 23:59 Morphine Sulfate 4 mg PRN Q2HR PRN IV PAIN Last administered on 10/17/16 07:01 ; Start 10/17/16 at 00:00; Stop 10/17/16 at 23:59 Sodium Chloride 1,000 ml @ 100 mls/hr Q10H IV Last administered on 10/17/16 01:12; Start 10/17/16 at 00:00; Stop 10/17/16 at 00:01; Status DC Acetaminophen (Tylenol) 650 mg PRN Q4HRS PRN PO FEVER; Start 10/17/16 at 00:00 ; Stop 10/17/16 at 23:59 Ceftriaxone Sodium 1 gm/ Sodium Chloride 50 ml @ 100 mls/hr Q24H IV Last administered on 10/17/16 01:12; Start 10/17/16 at 00:00 Propofol 20 ml @ As Directed STK-MED ONCE IV ; Start 10/17/16 at 07:28; Stop at 07:29; Status DC Lidocaine HCl (Lidocaine Pf 2% Vial) 5 ml STK-MED ONCE .ROUTE ; Start 10/17/16 at 07:28; Stop 10/17/16 at 07:29; Status DC Ondansetron HCl (Zofran) 4 mg STK-MED ONCE .ROUTE ; Start 10/17/16 at 07:28; Stop 10/17/16 at 07:29; Status DC Dexamethasone Sodium Phosphate (Decadron) 20 mg STK-MED ONCE .ROUTE ; Start at 07:28; Stop 10/17/16 at 07:29; Status DC Fentanyl Citrate (Fentanyl 2ml Vial) 100 mcg STK-MED ONCE .ROUTE ; Start at 07:28; Stop 10/17/16 at 07:29; Status DC Lidocaine HCl (Glydo (Lidocaine) Jelly) 6 massimo STK-MED ONCE .ROUTE Last administered on 10/17/16 08:27; Start 10/17/16 at 07:42; Stop 10/17/16 at 07:43 ; Status DC Iohexol (Omnipaque 300 Mg/ml) 50 ml STK-MED ONCE .ROUTE Last administered on 08:27; Start 10/17/16 at 07:42; Stop 10/17/16 at 07:43; Status DC Cefazolin Sodium 50 ml @ As Directed STK-MED ONCE IV ; Start 10/17/16 at 08:15; Stop 10/17/16 at 08:16; Status DC Lidocaine HCl (Glydo (Lidocaine) Jelly) 1 massimo STK-MED ONCE MM Last administered on 10/17/16 08:27; Start 10/17/16 at 08:27; Stop 10/17/16 at 08:43 ; Status DC Sevoflurane (Ultane) 60 ml STK-MED ONCE IH ; Start 10/17/16 at 08:35; Stop 10/17 at 08:36; Status DC Phenylephrine HCl 1 mg STK-MED ONCE IV ; Start 10/17/16 at 08:43; Stop 10/17/16 at 08:44; Status DC Ketorolac Tromethamine (Toradol For Or Only) 30 mg STK-MED ONCE INJ ; Start at 08:49; Stop 10/17/16 at 08:50; Status DC Cefazolin Sodium 50 ml @ 100 mls/hr 1X PREOP PRN IV SEE COMMENTS Last administered on 10/17/16 08:16; Start 10/17/16 at 08:00; Stop 10/18/16 at 00:00 Ringer's Solution 1,000 ml @ 125 mls/hr Q8H IV ; Start 10/18/16 at 06:00; Stop 10/18/16 at 11:59 Ibuprofen (Motrin) 600 mg PRN Q6HRS PRN PO INFLAMMATION; Start 10/17/16 at 10: 00 Acetaminophen/ Hydrocodone Bitart (Lortab 5/325) 1 tab PRN Q4HRS PRN PO PAIN; Start 10/17/16 at 10:00 Active Scripts Active Zofran Odt (Ondansetron) 4 Mg Tab.rapdis 1 Tab SL Q6HRS PRN [place] 5-325 Tablet (Acetaminophen/Hydrocodone Bitart) 1 Each Tablet 1 Tab PO QID PRN Ibuprofen 600 Mg Tablet 600 Mg PO PRN Q6HRS PRN Allergies Allergies: Coded Allergies: No Known Drug Allergies (Unverified , 10/17/16) ROS General: No: Chills, Night Sweats, Fatigue, Malaise, Appetite, Other PSYCHOLOGICAL ROS: No: Anxiety, Behavioral Disorder, Concentration difficultie , Decreased libido, Depression, Disorientation, Hallucinations, Hostility, Irritablity, Memory difficulties, Mood Swings, Obsessive thoughts, Physical abuse, Sexual abuse, Sleep disturbances, Suicidal ideation, Other Eyes: No Blurry vision, No Decreased vision, No Double vision, No Dry eyes, No Excessive tearing, No Eye Pain, No Itchy Eyes, No Loss of vision, No Photophobia , No Scotomata, No Uses contacts, No Uses glasses, No Other HEENT: No: Heacaches, Visual Changes, Hearing change, Nasal congestion, Nasal discharge, Oral lesions, Sinus pain, Sore Throat, Epistaxis, Sneezing, Snoring, Tinnitus, Vertigo, Vocal changes, Other ALLERGY AND IMMUNOLOGY: No: Hives, Insect Bite Sensitivity, Itchy/Watery Eyes, Nasal Congestion, Post Nasal Drip, Seasonal Allergies, Other Hematological and Lymphatic: No: Bleeding Problems, Blood Clots, Blood Transfusions, Brusing, Night Sweats, Pallor, Swollen Lymph Nodes, Other ENDOCRINE: No: Breast Changes, Galactorrhea, Hair Pattern Changes, Hot Flashes , Malaise/lethargy, Mood Swings, Palpitations, Polydipsia/polyuria, Skin Changes , Temperature Intolerance, Unexpected Weight Changes, Other Breast: No New/Changing Breast Lumps, No Nipple changes, No Nipple discharge, No Other Respiratory: No: Cough, Hemoptysis, Orthopnea, Pleuritic Pain, Shortness of breath, SOB with excertion, Sputum Changes, Stridor, Tachypnea, Wheezing, Other Cardiovascular: No Chest Pain, No Palpitations, No Orthopnea, No Paroxysmal Noc. Dyspnea, No Edema, No Lt Headedness, No Other Gastrointestinal: No Nausea, No Vomiting, No Abdominal Pain, No Diarrhea, No Constipation, No Melena, No Hematochezia, No Other Genitourinary: No Dysuria, No Frequency, No Incontinence, No Hematuria, No Retention, No Discharge, No Urgency, No Pain, No Flank Pain, No Other, No , No , No , No , No , No , No Musculoskeletal: No Gait Disturbance, No Joint Pain, No Joint Stiffness, No Joint Swelling, No Muscle Pain, No Muscular Weakness, No Pain In:, No Swelling In:, No Other Neurological: No Behavorial Changes, No Bowel/Bladder ControlChng, No Confusion , No Dizziness, No Gait Disturbance, No Headaches, No Impaired Coord/balance, No Memory Loss, No Numbness/Tingling, No Seizures, No Speech Problems, No Tremors, No Visual Changes, No Weakness, No Other Skin: No Dry Skin, No Eczema, No Hair Changes, No Lumps, No Mole Changes, No Mottling, No Nail Changes, No Pruritus, No Rash, No Skin Lesion Changes, No Other, No Acne Physical Exam General: Alert, Oriented X3, Cooperative, No acute distress HEENT: PERRLA Lungs: Clear to auscultation, Normal air movement Heart: S1S2, RRR, no thrills, no rubs Cardiovascular: S1, S2 Breasts: Normal Abdomen: Normal bowel sounds, Soft, No tenderness, No hepatosplenomegaly, No masses Extremities: No clubbing, No cyanosis, No edema, Normal pulses, No tenderness/ swelling Skin: No rashes, No breakdown, No significant lesion Neuro: Normal gait, Normal speech, Strength at 5/5 X4 ext, Normal tone, Sensation intact, Cranial nerves 3-12 NL, Reflexes 2+ Psych/Mental Status: Mental status NL, Mood NL Vitals Vitals Vital Signs Date Time Temp Pulse Resp B/P (MAP) Pulse Ox O2 Delivery O2 Flow Rate FiO2 10/17/16 12:00 74 115/75 (88) 97 Room Air 10/17/16 09:55 97.5 16 97.5 10/17/16 09:11 4 Labs Labs Laboratory Tests Test 10/16/16 21:02 10/16/16 22:10 Bedside Urine HCG, Qualitative Hcg negative (Negative) White Blood Count 10.4 x10^3/uL (4.0-11.0) Red Blood Count 4.14 x10^6/uL (3.50-5.40) Hemoglobin 11.1 g/dL (12.0-15.5) Hematocrit 33.9 % (36.0-47.0) Mean Corpuscular Volume 82 fL (79-100) Mean Corpuscular Hemoglobin 27 pg (25-35) Mean Corpuscular Hemoglobin Concent 33 g/dL (31-37) Red Cell Distribution Width 14.4 % (11.5-14.5) Platelet Count 190 x10^3/uL (140-400) Neutrophils (%) (Auto) 84 % (31-73) Lymphocytes (%) (Auto) 8 % (24-48) Monocytes (%) (Auto) 8 % (0-9) Eosinophils (%) (Auto) 0 % (0-3) Basophils (%) (Auto) 0 % (0-3) Neutrophils # (Auto) 8.7 x10^3uL (1.8-7.7) Lymphocytes # (Auto) 0.9 x10^3/uL (1.0-4.8) Monocytes # (Auto) 0.8 x10^3/uL (0.0-1.1) Eosinophils # (Auto) 0.0 x10^3/uL (0.0-0.7) Basophils # (Auto) 0.0 x10^3/uL (0.0-0.2) Urine Collection Type Unknown Urine Color Yellow Urine Clarity Cloudy Urine pH 7.5 Urine Specific [place] <=1.005 Urine Protein Negative mg/dL (NEG-TRACE) Urine Glucose (UA) Negative mg/dL (NEG) Urine Ketones (Stick) Negative mg/dL (NEG) Urine Blood Large (NEG) Urine Nitrite Negative (NEG) Urine Bilirubin Negative (NEG) Urine Urobilinogen Dipstick 0.2 mg/dL (0.2 mg/dL) Urine Leukocyte Esterase Large (NEG) Urine RBC 20-40 /HPF (0-2) Urine WBC Tntc /HPF (0-4) Urine Squamous Epithelial Cells Many /LPF Urine Amorphous Sediment Present /HPF Urine Bacteria Moderate /HPF (0-FEW) Urine Mucus Slight /LPF Sodium Level 136 mmol/L (136-145) Potassium Level 3.9 mmol/L (3.5-5.1) Chloride Level 101 mmol/L (98-107) Carbon Dioxide Level 29 mmol/L (21-32) Anion Gap 6 (6-14) Blood Urea Nitrogen 7 mg/dL (7-20) Creatinine 0.9 mg/dL (0.6-1.0) Estimated GFR (Cockcroft-Gault) 75.1 Glucose Level 115 mg/dL (70-99) Calcium Level 8.7 mg/dL (8.5-10.1) Laboratory Tests Test 10/16/16 21:02 10/16/16 22:10 Bedside Urine HCG, Qualitative Hcg negative (Negative) White Blood Count 10.4 x10^3/uL (4.0-11.0) Red Blood Count 4.14 x10^6/uL (3.50-5.40) Hemoglobin 11.1 g/dL (12.0-15.5) Hematocrit 33.9 % (36.0-47.0) Mean Corpuscular Volume 82 fL (79-100) Mean Corpuscular Hemoglobin 27 pg (25-35) Mean Corpuscular Hemoglobin Concent 33 g/dL (31-37) Red Cell Distribution Width 14.4 % (11.5-14.5) Platelet Count 190 x10^3/uL (140-400) Neutrophils (%) (Auto) 84 % (31-73) Lymphocytes (%) (Auto) 8 % (24-48) Monocytes (%) (Auto) 8 % (0-9) Eosinophils (%) (Auto) 0 % (0-3) Basophils (%) (Auto) 0 % (0-3) Neutrophils # (Auto) 8.7 x10^3uL (1.8-7.7) Lymphocytes # (Auto) 0.9 x10^3/uL (1.0-4.8) Monocytes # (Auto) 0.8 x10^3/uL (0.0-1.1) Eosinophils # (Auto) 0.0 x10^3/uL (0.0-0.7) Basophils # (Auto) 0.0 x10^3/uL (0.0-0.2) Urine Collection Type Unknown Urine Color Yellow Urine Clarity Cloudy Urine pH 7.5 Urine Specific [place] <=1.005 Urine Protein Negative mg/dL (NEG-TRACE) Urine Glucose (UA) Negative mg/dL (NEG) Urine Ketones (Stick) Negative mg/dL (NEG) Urine Blood Large (NEG) Urine Nitrite Negative (NEG) Urine Bilirubin Negative (NEG) Urine Urobilinogen Dipstick 0.2 mg/dL (0.2 mg/dL) Urine Leukocyte Esterase Large (NEG) Urine RBC 20-40 /HPF (0-2) Urine WBC Tntc /HPF (0-4) Urine Squamous Epithelial Cells Many /LPF Urine Amorphous Sediment Present /HPF Urine Bacteria Moderate /HPF (0-FEW) Urine Mucus Slight /LPF Sodium Level 136 mmol/L (136-145) Potassium Level 3.9 mmol/L (3.5-5.1) Chloride Level 101 mmol/L (98-107) Carbon Dioxide Level 29 mmol/L (21-32) Anion Gap 6 (6-14) Blood Urea Nitrogen 7 mg/dL (7-20) Creatinine 0.9 mg/dL (0.6-1.0) Estimated GFR (Cockcroft-Gault) 75.1 Glucose Level 115 mg/dL (70-99) Calcium Level 8.7 mg/dL (8.5-10.1) VTE Prophylaxis Ordered VTE Prophylaxis Devices: Yes VTE Pharmacological Prophylaxi: Yes Assessment/Plan Assessment/Plan 1. R kidney stone s.p R ureter stent placement (10/17) 2. UPJ stenosis PLAN: Urology consulted, did stent Agree with IV rocephin HOme kimberly on PO cipro Ff up [facility] for the UPJ stenosis THERESA SURESH MD Oct 17, 2016 13:03
[2016-10-17] MEDS: DOCUSATE SODIUM 100 MG CAPSULE. PO SCH (16:33)
[2016-10-17] MEDS: IV NORMAL SALINE 1000ML BAG 1,000 ML IV SCH (18:46)
--- NOTE | 2016-10-17 20:40 | CONS ---
DATE OF CONSULTATION: 10/17/2016 LOCATION: The patient's room 422. HISTORY OF PRESENT ILLNESS: The patient is a very pleasant 26-year-old female with history of right flank and abdominal pain. The patient was seen in the Emergency Room originally back on 10/14/2016 and was diagnosed with probable right renal colic. The patient had a CT scan which had shown her to have a calcification in the right side of the hemipelvis, possibly in the right distal ureter. The patient was trying to pass the stone on her own at home, but then continued to have pain which brought her back in to the Emergency Room. On the evening of 10/16/2016, she had an ultrasound which showed a suspected stone at the right ureterovesical junction measuring up to 12 mm with moderate right hydronephrosis and hydroureter. The patient was therefore admitted for further pain control and management. White count is 10.4, creatinine is 0.9. Urine shows 20-40 red cells, too numerous to count white cells, moderate bacteria, nitrite negative. The patient's temperature is 99.3. The patient states she has had a prior stone as a child that she states that she had passed. PAST SURGICAL HISTORY: , no major medical problems otherwise. MEDICATIONS: The patient is normally on no medications. ALLERGIES: She has no known drug allergies. PHYSICAL EXAMINATION: ABDOMEN: The patient with tenderness in the right flank and abdomen. No left-sided flank pain or left-sided abdominal pain. PLAN: I discussed with the patient and her family with the aid of an motor home electrical foreman of her nephew and we discussed the options, alternatives, benefits, risks and possible complications of medical expulsive therapy versus surgical intervention with cystoscopy, right retrograde pyelogram, possible ureteroscopy, possible laser lithotripsy and possible right ureteral stent placement. They understand this and do wish to proceed ahead with operation. We will therefore proceed accordingly. I certainly appreciate being allowed to participate in this patient's care. FELY SERRANO MD DR: DANDRE/josue JOB#: [id number] / [id number]
[2016-10-18 03:59] VITALS: BP 113/51
[2016-10-18] MEDS: IV NORMAL SALINE 1000ML BAG 1,000 ML IV SCH (05:00)
[2016-10-18] MEDS ORDERED: IV RINGERS,LACTATED 1000ML 1,000 ML IV SCH (06:00)
[2016-10-18 07:00] VITALS: BP 94/57
[2016-10-18] MEDS: DOCUSATE SODIUM 100 MG CAPSULE. PO SCH (09:20)
[2016-10-18] MEDS ORDERED: CIPR500T94 PO (09:37)
--- NOTE | 2016-10-18 09:40 | PDOC3 ---
Discharge Summary Visit Information Date of Admission: Oct 16, 2016 Date of Discharge: Oct 18, 2016 Admitting Diagnosis Comment: 1. R kidney stone s.p R ureter stent placement (10/17) 2. UPJ stenosis Final Diagnosis Problems Medical Problems: (1) Acute cystitis with hematuria Status: Acute (2) Ureteral colic Status: Acute Brief Hospital Course Allergies Allergies Coded Allergies Type Severity Reaction Last Updated Verified No Known Drug Allergies 10/17/16 No Vital Signs Vital Signs Date Time Temp Pulse Resp B/P (MAP) Pulse Ox O2 Delivery O2 Flow Rate FiO2 10/18/16 07:00 97.7 18 18 94/57 (69) 98 Room Air 97.7 10/17/16 09:11 4 Lab Results Laboratory Tests Test 10/16/16 21:02 10/16/16 22:10 Bedside Urine HCG, Qualitative Hcg negative (Negative) White Blood Count 10.4 x10^3/uL (4.0-11.0) Red Blood Count 4.14 x10^6/uL (3.50-5.40) Hemoglobin 11.1 g/dL (12.0-15.5) Hematocrit 33.9 % (36.0-47.0) Mean Corpuscular Volume 82 fL (79-100) Mean Corpuscular Hemoglobin 27 pg (25-35) Mean Corpuscular Hemoglobin Concent 33 g/dL (31-37) Red Cell Distribution Width 14.4 % (11.5-14.5) Platelet Count 190 x10^3/uL (140-400) Neutrophils (%) (Auto) 84 % (31-73) Lymphocytes (%) (Auto) 8 % (24-48) Monocytes (%) (Auto) 8 % (0-9) Eosinophils (%) (Auto) 0 % (0-3) Basophils (%) (Auto) 0 % (0-3) Neutrophils # (Auto) 8.7 x10^3uL (1.8-7.7) Lymphocytes # (Auto) 0.9 x10^3/uL (1.0-4.8) Monocytes # (Auto) 0.8 x10^3/uL (0.0-1.1) Eosinophils # (Auto) 0.0 x10^3/uL (0.0-0.7) Basophils # (Auto) 0.0 x10^3/uL (0.0-0.2) Urine Collection Type Unknown Urine Color Yellow Urine Clarity Cloudy Urine pH 7.5 Urine Specific [place] <=1.005 Urine Protein Negative mg/dL (NEG-TRACE) Urine Glucose (UA) Negative mg/dL (NEG) Urine Ketones (Stick) Negative mg/dL (NEG) Urine Blood Large (NEG) Urine Nitrite Negative (NEG) Urine Bilirubin Negative (NEG) Urine Urobilinogen Dipstick 0.2 mg/dL (0.2 mg/dL) Urine Leukocyte Esterase Large (NEG) Urine RBC 20-40 /HPF (0-2) Urine WBC Tntc /HPF (0-4) Urine Squamous Epithelial Cells Many /LPF Urine Amorphous Sediment Present /HPF Urine Bacteria Moderate /HPF (0-FEW) Urine Mucus Slight /LPF Sodium Level 136 mmol/L (136-145) Potassium Level 3.9 mmol/L (3.5-5.1) Chloride Level 101 mmol/L (98-107) Carbon Dioxide Level 29 mmol/L (21-32) Anion Gap 6 (6-14) Blood Urea Nitrogen 7 mg/dL (7-20) Creatinine 0.9 mg/dL (0.6-1.0) Estimated GFR (Cockcroft-Gault) 75.1 Glucose Level 115 mg/dL (70-99) Calcium Level 8.7 mg/dL (8.5-10.1) Brief Hospital Course Ms. Alegre is a 26 old female admitted for acute r sided pain, found to have stone, Underwent stent placement, Empiric UTI tx. HAs proximal R UPJ stenosis likely caused her stone and needs robotics, laparoscopic sx not done here,. Advised urology ff up PAin meds and cipro given Dw pt and family Time 31 mins, language barrier etc Pt seen and examined COnsulTS; urology Proc: R ureteral stent pl;acement Discharge Information Condition at Discharge: Improved, Stable Follow Up: Weeks (ff up [facility] for R UPJ stenosis, proximal) Disposition/Orders: D/C to Home Scheduled PRN Hydrocodone/Apap 5-325 ([place] 5-325 Tablet), 1 TAB PO QID PRN for PAIN Ibuprofen (Ibuprofen), 600 MG PO PRN Q6HRS PRN for PAIN Ondansetron (Zofran Odt), 1 TAB SL Q6HRS PRN for NAUSEA TERMULO,THERESA Y MD Oct 18, 2016 09:40
--- NOTE | 2016-10-18 10:02 | PDOC ---
PROGRESS NOTES Subjective Subjective Pt. feeling well Objective Objective Vital Signs Date Time Temp Pulse Resp B/P (MAP) Pulse Ox O2 Delivery O2 Flow Rate FiO2 10/18/16 07:00 97.7 18 18 94/57 (69) 98 Room Air 97.7 10/17/16 09:11 4 Intake and Output 10/18/16 07:00 Intake Total 1780 ml Output Total 2720 ml Balance -940 ml Intake Oral 1180 ml IV Total 600 ml Output Urine Total 2720 ml # Voids 8 Physical Exam Physical Exam No pain today Plan Plan of Long-Term today on antibiotics F/U [facility] in 1-2 weeks for further eval and treatment of right ureteral stone and right UPJ stenosis Problems Medical Problems: (1) Acute cystitis with hematuria Status: Acute (2) Ureteral colic Status: Acute Comment Review of Relevant I have reviewed the following items aaron (where applicable) has been applied. Labs Laboratory Tests Test 10/16/16 21:02 10/16/16 22:10 Bedside Urine HCG, Qualitative Hcg negative (Negative) White Blood Count 10.4 x10^3/uL (4.0-11.0) Red Blood Count 4.14 x10^6/uL (3.50-5.40) Hemoglobin 11.1 g/dL (12.0-15.5) Hematocrit 33.9 % (36.0-47.0) Mean Corpuscular Volume 82 fL (79-100) Mean Corpuscular Hemoglobin 27 pg (25-35) Mean Corpuscular Hemoglobin Concent 33 g/dL (31-37) Red Cell Distribution Width 14.4 % (11.5-14.5) Platelet Count 190 x10^3/uL (140-400) Neutrophils (%) (Auto) 84 % (31-73) Lymphocytes (%) (Auto) 8 % (24-48) Monocytes (%) (Auto) 8 % (0-9) Eosinophils (%) (Auto) 0 % (0-3) Basophils (%) (Auto) 0 % (0-3) Neutrophils # (Auto) 8.7 x10^3uL (1.8-7.7) Lymphocytes # (Auto) 0.9 x10^3/uL (1.0-4.8) Monocytes # (Auto) 0.8 x10^3/uL (0.0-1.1) Eosinophils # (Auto) 0.0 x10^3/uL (0.0-0.7) Basophils # (Auto) 0.0 x10^3/uL (0.0-0.2) Urine Collection Type Unknown Urine Color Yellow Urine Clarity Cloudy Urine pH 7.5 Urine Specific [place] <=1.005 Urine Protein Negative mg/dL (NEG-TRACE) Urine Glucose (UA) Negative mg/dL (NEG) Urine Ketones (Stick) Negative mg/dL (NEG) Urine Blood Large (NEG) Urine Nitrite Negative (NEG) Urine Bilirubin Negative (NEG) Urine Urobilinogen Dipstick 0.2 mg/dL (0.2 mg/dL) Urine Leukocyte Esterase Large (NEG) Urine RBC 20-40 /HPF (0-2) Urine WBC Tntc /HPF (0-4) Urine Squamous Epithelial Cells Many /LPF Urine Amorphous Sediment Present /HPF Urine Bacteria Moderate /HPF (0-FEW) Urine Mucus Slight /LPF Sodium Level 136 mmol/L (136-145) Potassium Level 3.9 mmol/L (3.5-5.1) Chloride Level 101 mmol/L (98-107) Carbon Dioxide Level 29 mmol/L (21-32) Anion Gap 6 (6-14) Blood Urea Nitrogen 7 mg/dL (7-20) Creatinine 0.9 mg/dL (0.6-1.0) Estimated GFR (Cockcroft-Gault) 75.1 Glucose Level 115 mg/dL (70-99) Calcium Level 8.7 mg/dL (8.5-10.1) Medications Current Medications Morphine Sulfate 4 mg PRN Q15MIN PRN IV/SQ PAIN GREATER THAN 3/10 Last administered on 10/16/16 22:29; Start 10/16/16 at 22:15; Stop 10/17/16 at 09:53 ; Status DC Sodium Chloride 1,000 ml @ 1,000 mls/hr Q1H IV Last administered on 10/16/16 22:24; Start 10/16/16 at 22:15; Stop 10/16/16 at 23:14; Status DC Ondansetron HCl (Zofran) 4 mg 1X ONCE IV Last administered on 10/16/16 22:27 ; Start 10/16/16 at 22:15; Stop 10/16/16 at 22:16; Status DC Ketorolac Tromethamine (Toradol) 10 mg 1X ONCE IV Last administered on 22:27; Start 10/16/16 at 22:15; Stop 10/16/16 at 22:16; Status DC Ondansetron HCl (Zofran) 4 mg PRN Q8HRS PRN IV NAUSEA/VOMITING; Start 10/17/16 at 00:00; Stop 10/17/16 at 23:59; Status DC Morphine Sulfate 4 mg PRN Q2HR PRN IV PAIN Last administered on 10/17/16 07:01 ; Start 10/17/16 at 00:00; Stop 10/17/16 at 23:59; Status DC Sodium Chloride 1,000 ml @ 100 mls/hr Q10H IV Last administered on 10/17/16 01:12; Start 10/17/16 at 00:00; Stop 10/17/16 at 00:01; Status DC Acetaminophen (Tylenol) 650 mg PRN Q4HRS PRN PO FEVER; Start 10/17/16 at 00:00 ; Stop 10/17/16 at 23:59; Status DC Ceftriaxone Sodium 1 gm/ Sodium Chloride 50 ml @ 100 mls/hr Q24H IV Last administered on 10/18/16 00:00; Start 10/17/16 at 00:00 Propofol 20 ml @ As Directed STK-MED ONCE IV ; Start 10/17/16 at 07:28; Stop at 07:29; Status DC Lidocaine HCl (Lidocaine Pf 2% Vial) 5 ml STK-MED ONCE .ROUTE ; Start 10/17/16 at 07:28; Stop 10/17/16 at 07:29; Status DC Ondansetron HCl (Zofran) 4 mg STK-MED ONCE .ROUTE ; Start 10/17/16 at 07:28; Stop 10/17/16 at 07:29; Status DC Dexamethasone Sodium Phosphate (Decadron) 20 mg STK-MED ONCE .ROUTE ; Start at 07:28; Stop 10/17/16 at 07:29; Status DC Fentanyl Citrate (Fentanyl 2ml Vial) 100 mcg STK-MED ONCE .ROUTE ; Start at 07:28; Stop 10/17/16 at 07:29; Status DC Lidocaine HCl (Glydo (Lidocaine) Jelly) 6 massimo STK-MED ONCE .ROUTE Last administered on 10/17/16 08:27; Start 10/17/16 at 07:42; Stop 10/17/16 at 07:43 ; Status DC Iohexol (Omnipaque 300 Mg/ml) 50 ml STK-MED ONCE .ROUTE Last administered on 08:27; Start 10/17/16 at 07:42; Stop 10/17/16 at 07:43; Status DC Cefazolin Sodium 50 ml @ As Directed STK-MED ONCE IV ; Start 10/17/16 at 08:15; Stop 10/17/16 at 08:16; Status DC Lidocaine HCl (Glydo (Lidocaine) Jelly) 1 massimo STK-MED ONCE MM Last administered on 10/17/16 08:27; Start 10/17/16 at 08:27; Stop 10/17/16 at 08:43 ; Status DC Sevoflurane (Ultane) 60 ml STK-MED ONCE IH ; Start 10/17/16 at 08:35; Stop 10/17 at 08:36; Status DC Phenylephrine HCl 1 mg STK-MED ONCE IV ; Start 10/17/16 at 08:43; Stop 10/17/16 at 08:44; Status DC Ketorolac Tromethamine (Toradol For Or Only) 30 mg STK-MED ONCE INJ ; Start at 08:49; Stop 10/17/16 at 08:50; Status DC Cefazolin Sodium 50 ml @ 100 mls/hr 1X PREOP PRN IV SEE COMMENTS Last administered on 10/17/16 08:16; Start 10/17/16 at 08:00; Stop 10/18/16 at 00:00 ; Status DC Ringer's Solution 1,000 ml @ 125 mls/hr Q8H IV ; Start 10/18/16 at 06:00; Stop 10/18/16 at 06:00; Status DC Ibuprofen (Motrin) 600 mg PRN Q6HRS PRN PO INFLAMMATION; Start 10/17/16 at 10: 00 Acetaminophen/ Hydrocodone Bitart (Lortab 5/325) 1 tab PRN Q4HRS PRN PO PAIN; Start 10/17/16 at 10:00 Docusate Sodium (Colace) 100 mg DAILY PO Last administered on 10/18/16 09:20; Start 10/17/16 at 17:00 Sodium Chloride 1,000 ml @ 100 mls/hr Q10H IV Last administered on 10/18/16 05:00; Start 10/17/16 at 19:00 Active Scripts Active Zofran Odt (Ondansetron) 4 Mg Tab.rapdis 1 Tab SL Q6HRS PRN [place] 5-325 Tablet (Acetaminophen/Hydrocodone Bitart) 1 Each Tablet 1 Tab PO QID PRN Ibuprofen 600 Mg Tablet 600 Mg PO PRN Q6HRS PRN Vitals/I & O Vital Sign - Last 24 Hours 10/17/16 10/17/16 10/17/16 10/17/16 10:15 10:30 11:05 11:30 Pulse 55 59 59 69 B/P (MAP) 108/64 (79) 106/69 (81) 110/70 (83) 112/61 (78) Pulse Ox 98 97 98 96 O2 Delivery Room Air Room Air Room Air Room Air 10/17/16 10/17/16 10/17/16 10/17/16 12:00 13:00 14:10 19:30 Temp 97.9 97.9 Pulse 74 71 75 Resp 18 B/P (MAP) 115/75 (88) 107/63 (78) 105/65 (78) Pulse Ox 97 96 97 O2 Delivery Room Air Room Air Room Air Room Air 10/17/16 10/17/16 10/17/16 10/18/16 19:59 21:00 23:59 03:59 Temp 97.9 98.6 97.9 97.9 98.6 97.9 Pulse 69 59 59 Resp 18 18 18 B/P (MAP) 100/58 (72) 98/58 (71) 113/51 (71) Pulse Ox 97 99 97 O2 Delivery Room Air Room Air Room Air Room Air 10/18/16 07:00 Temp 97.7 97.7 Pulse 18 Resp 18 B/P (MAP) 94/57 (69) Pulse Ox 98 O2 Delivery Room Air Intake and Output 10/17/16 10/17/16 10/18/16 15:00 23:00 07:00 Intake Total 600 ml 1180 ml Output Total 1170 ml 950 ml 600 ml Balance -570 ml 230 ml -600 ml FELY SERRANO MD Oct 18, 2016 10:02
[2016-10-18 11:00] VITALS: BP 103/62
== END 2016-10-18 14:05 | disposition home or self-care (01) | DRG 694 ==
LOC: ER 21:41 → 4 NORTH 23:45
PROVIDERS: ADMIT Internal Medicine; ATTEND Internal Medicine
PROC: BT1D1ZZ Fluoroscopy of Right Kidney, Ureter and Bladder using Low Osmolar Contrast (ICD-10-PCS; 2016-10-17)
PROC: 0T768DZ Dilation of Right Ureter with Intraluminal Device, Via Natural or Artificial Opening Endoscopic (ICD-10-PCS; principal; 2016-10-17 08:00)
DX: N13.2 Hydronephrosis with renal and ureteral calculous obstruction (principal); N30.01 Acute cystitis with hematuria; N39.0 Urinary tract infection, site not specified; Z82.49 Family history of ischemic heart disease and other diseases of the circulatory system; Z79.899 Other long term (current) drug therapy; Z79.1 Long term (current) use of non-steroidal anti-inflammatories (NSAID)
CPT/HCPCS: 36415; 74420; 76770; 80048; 81001; 81025; 85027; 87086; 96361; 96374; 96375; C1769; C2617; J0690; J0696; J1100; J1885; J2270; J2370; J2405; J2704; J3010; J7030; J7120; Q9967; 99285-25